=== PATIENT | female | born 1990 | race Caucasian/White ===

== ENCOUNTER 2017-01-15 21:14 | Emergency (ER) | payer SELFPAY ==
--- NOTE | ~2017-01-15 | ER ---
PATIENT'S NAME: JOLIE MARITZA R [facility] AGE: 26 Y [address] ROOM: [place] [address] LOCATION: [facility] ADMIT DATE: 01/15/2017 ER/Outpatient Report DISCHARGE DATE: 01/15/2017 FAMILY PHYSICIAN: Patrick Turner MD ATTENDING PHYSICIAN: Emely Sanchez Time of Arrival: 2114 hours. Time of Evaluation: 5 hours. CHIEF COMPLAINT: Dental pain. HISTORY OF PRESENT ILLNESS: This is a 26-year-old female, who presents to the ER. She states she has had a broken off left upper tooth for approximately 2 years. She states for the last couple of days, it has really been bothering her. She is going to go to the [facility] in [place] on , but she wanted to get started on antibiotics before then, so that she could get her tooth work done. She has not been running any fevers at home. She denies any other problems at this time. ALLERGIES: NO KNOWN ALLERGIES. MEDICATIONS: Please see medication list in nurse's notes. PAST MEDICAL HISTORY: Previous dental pain. PAST SURGICAL HISTORY: None. SOCIAL HISTORY: She smokes cigarettes, and she does smoke marijuana occasionally. REVIEW OF SYSTEMS: CONSTITUTIONAL: Denies any change in weight or fatigue. HEENT: She is complaining of dental pain. SKIN: No lesions or rashes. PHYSICAL EXAMINATION: VITAL SIGNS: Height 5 feet 7 inches stated, weight 58.7 kg taken, blood pressure is 127/89, pulse 85, respirations 14, temperature 98.4 degrees tympanically, saturations 100% on room air. Catherine Coma Score is 15. PATIENT'S NAME: JOLIE MARITZA R [facility] AGE: 26 Y [address] ROOM: [place] [address] LOCATION: [facility] ADMIT DATE: 01/15/2017 ER/Outpatient Report DISCHARGE DATE: 01/15/2017 FAMILY PHYSICIAN: Patrick Turner MD ATTENDING PHYSICIAN: Emely Sanchez GENERAL: An alert, calm, well-developed female, in no acute distress. HEENT: Head: Normocephalic. Eyes: Pupils are equal and reactive to light. She does display moist mucous membranes. She does have a broken off left upper molar. Gums are non-erythematic. LUNGS: Clear to auscultation bilaterally. No wheezes or crackles. Normal respiratory effort. HEART: Regular rate and rhythm. No lifts, thrills, or murmurs. LABORATORY DATA AND X-RAYS: None were done. IMPRESSION: Left upper dental pain. ASSESSMENT AND PLAN: We will dismiss the patient home with a prescription for amoxicillin to use as directed. She may take Tylenol or ibuprofen as needed for pain control, and she needs to follow up with her dentist for followup care. The patient understands and agrees with care. AISLINN CHRISTY PA-C FOR MD MARGI DEL VALLE/deangelo /[id number] d: 01/16/17 0249 t: 02/10/17 1822, OUTPATIENT REPORT
== END 2017-01-15 21:32 | disposition disaster alternative care site (69) ==
LOC: GMED 21:14
DX: K08.89 Other specified disorders of teeth and supporting structures (principal); F17.210 Nicotine dependence, cigarettes, uncomplicated